=== PATIENT | female | born 1990 | race Caucasian/White ===

== ENCOUNTER 2018-11-01 15:18 | Emergency (ER) | payer BC ==
[~2018-11-01] VITALS: Ht 152.4 cm; Wt 64.5 kg
[2018-11-01 15:22] VITALS: BP 133/68; PULSE 77; RESP 20; Ht 152.4 cm; Wt 64.5 kg
[2018-11-01] MEDS ORDERED: KETOROLAC 60 MG INJ IM STA (18:27)
[2018-11-01] MEDS ORDERED: CYCLOBENZAPRINE 10 MG TAB PO ONE (18:30)
[2018-11-01] MEDS ORDERED: CYCL10TA7 PO (18:57)
[2018-11-01] MEDS ORDERED: NAPR-985 PO (18:57)
--- NOTE | 2018-11-02 02:13 | ERD ---
ER Documentation Chief Complaint Chief Complaint Complains of back paun that radiates to right leg and knee HPI History of Present Illness: 28-year-old female with complaint of right lower extremity pain, patient points to her quad and hamstring. Patient denies any back pain. Reports pain as left quads tightness and spasms. Denies injury or trauma. At home pharmacological/nonpharmacological treatment for symptoms: DENIES Denies social concerns; Denies recent foreign travel ROS All systems reviewed and are negative except as per history of present illness. Medications Home Meds Active Scripts Naproxen* (Naprosyn*) 500 Mg Tablet, 500 MG PO BID PRN for PAIN AND/OR INFLAMMATION, #30 TAB Prov:JOVANY FOWLER V [employer]ECTIVE 11/01/18 Cyclobenzaprine Hcl* (Cyclobenzaprine Hcl*) 10 Mg Tablet, 10 MG PO TID for muscle tightness/muscle spasm, #15 TAB Prov:JOVANY FOWLER V [employer] DETECTIVE 11/01/18 Allergies Allergies: Coded Allergies: No Known Allergy (Unverified , 11/01/18) PMhx/Soc Medical and Surgical Hx: pt denies Surgical Hx History of Surgery: No Anesthesia Reaction: No Hx Neurological Disorder: No Hx Respiratory Disorders: Yes (Asthma) Hx Cardiac Disorders: No Hx Psychiatric Problems: No Hx Miscellaneous Medical Probl: No Hx Alcohol Use: No Hx Substance Use: No Hx Tobacco Use: No Smoking Status: Never smoker FmHx Family History: No coronary disease Physical Exam Vitals Vital Signs Date Temp Pulse Resp B/P (MAP) Pulse Ox O2 O2 Flow FiO2 Time Delivery Rate 11/01/18 98.6 77 20 133/68 97 15:22 (89) Physical Exam Const: No acute distress Head: Atraumatic Eyes: Normal Conjunctiva ENT: Normal External Ears, Nose and Mouth. Neck: Full range of motion. No meningismus. Resp: Clear to auscultation bilaterally Cardio: Regular rate and rhythm, no murmurs Abd: Soft, non tender, non distended. Normal bowel sounds Skin: No petechiae or rashes Back: No midline or flank tenderness Ext: No cyanosis, or edema; tenderness to palpation along right lower extremity, laterally, NVI distally Neur: Awake and alert Psych: Normal Mood and Affect Results 24 hrs Laboratory Tests Test 11/01/18 18:06 11/01/18 18:44 POC Beta HCG, Qualitative NEGATIVE Bedside Urine pH (LAB) 6.0 Bedside Urine Protein (LAB) Negative Bedside Urine Glucose (UA) Negative Bedside Urine Ketones (LAB) Negative Bedside Urine Blood Negative Bedside Urine Nitrite (LAB) Negative Bedside Urine Leukocyte Esterase (L Negative Current Medications Medications Dose Sig/Robin Start Time Status Last (Trade) Ordered Route PRN Stop Time Admin Dose Reason Admin Ketorolac 60 mg ONCE STAT 11/01/18 DC 11/01/18 Tromethamine IM 18:27 11/01/18 18:39 (Toradol) 18:28 10 mg ONCE ONCE 11/01/18 DC 11/01/18 Cyclobenzapri PO 18:30 11/01/18 18:38 ne HCl 18:31 (Flexeril) Procedures/MDM ED course includes a thorough examination and history. Medications: Ketorolac, -Cyclobenzaprine Imaging: -- Labs: Urine Low suspicion for life-threatening medical emergency. Low suspicion for orthopedic emergency or neurological emergency requires hospitalization or immediate surgical intervention. Otherwise healthy patient presenting with constellation of symptoms likely representing uncomplicated tensor fascia lani syndrome as characterized by history, physical exam findings, lab findings. Urine negative. No respiratory distress, otherwise relatively well appearing and nontoxic. Patient reassessment includes improvement in pain. Education given. Disposition given. Patient educated on diagnoses, prescriptions, follow-up care, return precautions. Strict return precautions given for worsening condition; questions answered discharge. Disposition for discharge with followup in 2 days with PCP/clinic. Departure Diagnosis: Primary Impression: Pain of right lower extremity Additional Impression: Tensor fascia lani syndrome Condition: Stable Patient Instructions: Muscle Strain, Extremity Referrals: [facility], [facility] YOU HAVE RECEIVED A MEDICAL SCREENING EXAM AND THE RESULTS INDICATE THAT YOU DO NOT HAVE A CONDITION THAT REQUIRES URGENT TREATMENT IN THE EMERGENCY DEPARTMENT. FURTHER EVALUATION AND TREATMENT OF YOUR CONDITION CAN WAIT UNTIL YOU ARE SEEN IN YOUR DOCTORS OFFICE WITHIN THE NEXT 1-2 DAYS. IT IS YOUR RESPONSIBILITY TO MAKE AN APPOINTMENT FOR FOLOW-UP CARE. IF YOU HAVE A PRIMARY DOCTOR --you should call your primary doctor and schedule an appointment IF YOU DO NOT HAVE A PRIMARY DOCTOR YOU CAN CALL OUR PHYSICIAN REFERRAL HOTLINE AT IF YOU CAN NOT AFFORD TO SEE A PHYSICIAN YOU CAN CHOSE FROM THE FOLLOWING [facility]MER[facility], [facility] [address] [facility] [facility] [address] [facility] [address] [facility] [address] [facility] [address] [facility]. [facility]. [address] [facility]. [facility] YOU HAVE RECEIVED A MEDICAL SCREENING EXAM AND THE RESULTS INDICATE THAT YOU DO NOT HAVE A CONDITION THAT REQUIRES URGENT TREATMENT IN THE EMERGENCY DEPARTMENT. FURTHER EVALUATION AND TREATMENT OF YOUR CONDITION CAN WAIT UNTIL YOU ARE SEEN IN YOUR DOCTORS OFFICE WITHIN THE NEXT 1-2 DAYS. IT IS YOUR RESPONSIBILITY TO MAKE AN APPOINTMENT FOR FOLOW-UP CARE. IF YOU HAVE A PRIMARY DOCTOR --you should call your primary doctor and schedule and appointment IF YOU DO NOT HAVE A PRIMARY DOCTOR YOU CAN CALL OUR PHYSICIAN REFERRAL HOTLINE AT . IF YOU CAN NOT AFFORD TO SEE A PHYSICIAN YOU CAN CHOSE FROM THE FOLLOWING [facility] INSTITUTIONS: [facility] [address] [place] [address] [facility] [address] [place] [address] [facility] [address] [place] [address] Additional Instructions: Thank you very much for allowing us to participate in your care. Your health and safety is our top priority at [facility]. It is important to read all discharge instructions and education provided in your discharge packet. *You will need to do exercises to stretch that right upper leg. Also speak to your primary care doctor about a possible referral to a physical therapist if the pain persists after utilizing stretching and the medications given today.* Call your primary care doctor TOMORROW for an appointment during the next 2-4 days and bring all the information and medications prescribed. Have prescriptions filled and follow precisely the directions on the label. -Naproxen is a anti-inflammatory/pain medication; take this medication daily as prescribed for the next week to help with swelling/inflammation/pain. --Cyclobenzaprine as a muscle relaxer; take this medication daily as prescribed for the next week to help with your muscle spasm. Do not operate heavy machinery while taking this medication; It may make you drowsy. If the symptoms get worse and your provider is unavailable, return to the Emergency Department immediately. JOVANY FOWLER NP November 02, 2018 02:13
== END 2018-11-01 19:07 | disposition home or self-care (01) ==
LOC: FTE 15:18
DX: M76.31 Iliotibial band syndrome, right leg (principal); J45.909 Unspecified asthma, uncomplicated
CPT/HCPCS: 81003; 81025; 96372; 99284; J1885; Z7610

== ENCOUNTER → 2019-03-09 | Emergency (ER) | payer BC ==
[~2019-03-09] VITALS: Ht 149.9 cm; Wt 64.1 kg
[~2019-03-09] MED LIST: ACETAMINOPHEN 325 MG TAB PO ONE; CYCL10TA7 PO; IBUP-1542 PO; IBUP-1561 PO; KETOROLAC 30 MG INJ IM STA; NAPR-985 PO
[2019-03-09 10:09] VITALS: BP 110/63; PULSE 72; RESP 18; Ht 149.9 cm; Wt 64.1 kg
== END | disposition home or self-care (01) ==
LOC: FTE 09:59
DX: S93.602A Unspecified sprain of left foot, initial encounter (principal); J45.909 Unspecified asthma, uncomplicated; W10.9XXA Fall (on) (from) unspecified stairs and steps, initial encounter; Y92.9 Unspecified place or not applicable
CPT/HCPCS: 73630; 81025; Z7610